=== PATIENT | female | born 1980 | race Caucasian/White ===

== ENCOUNTER 2019-11-16 10:39 | Emergency (ER) | payer MEDICAID ==
[~2019-11-16] VITALS: Ht 160 cm; Wt 81.6 kg
--- NOTE | 2019-11-16 10:44 | NUR ---
DR Pena at the bedside for MSE.
[2019-11-16 11:10] VITALS: BP 131/56
--- NOTE | 2019-11-16 11:18 | NUR ---
Patient discharged to home in stable condition. Written and verbal after care instructions given. Patient verbalizes understanding of instructions. Stressed follow up or return to ER for worsening s/s.
== END 2019-11-16 11:18 | disposition home or self-care (01) ==
LOC: ER 10:39
DX: K04.7 Periapical abscess without sinus (principal); K02.9 Dental caries, unspecified
CPT/HCPCS: A4663